=== PATIENT | female | born 1970 | race Two or more races ===

== ENCOUNTER → 2025-02-22 | Outpatient (CLI) | payer BC, SELFPAY ==
--- NOTE | 2025-02-22 09:30 | XR_ITS ---
Examination: Abdomen sonogram, complete Date and time of exam: February 22, 2025 1006 hours INDICATIONS: Right lower abdominal pain beginning several months ago. Technique: Multiple real-time grayscale transabdominal sonographic images of the abdomen have been obtained. Findings: Multiple gallstones Gallbladder wall 0.2 cm Common bile duct 0.3 cm Pancreatic head 1.7 cm Aorta not enlarged. Liver 12.3 cm fatty infiltration no focal liver lesions Normal hepatopedal portal venous flow Patent IVC Right kidney 10.0 cm cortex 1.3 cm Left kidney 11.8 cm cortex 2.1 cm Mild right moderate left renal parenchymal scar formation Spleen 10.0 cm IMPRESSION: Cholelithiasis, negative for cholecystitis
--- NOTE | 2025-02-22 09:42 | XR_ITS ---
Examination: Pelvic ultrasound, transabdominal, complete Technique: Transabdominal ultrasound of the pelvis performed using grayscale imaging Date and time of exam: February 22, 2025 1019 hours INDICATIONS: Pelvic pain beginning several months ago. FINDINGS: Uterus 6.4 cm endometrial stripe 0.2 cm No discrete uterine mass. Ovaries obscured by bowel gas. IMPRESSION: Limited study No discrete uterine mass
== END | disposition home or self-care (01) ==
PROVIDERS: PCP Family Medicine; Referring Provider Family Medicine; Visit Provider Family Medicine
DX: K80.20 Calculus of gallbladder without cholecystitis without obstruction (principal); R10.31 Right lower quadrant pain
CPT/HCPCS: 76700; 76856